=== PATIENT | male | born 1960 | race African-American/Black ===

== ENCOUNTER 2020-09-18 09:43 | Inpatient (IN) ==
[2020-09-18] MEDS ORDERED: PROMETHAZINE 25 MG/1 ML VIAL IM PRN (12:22)
[2020-09-18] MEDS ORDERED: HYDROmorphone 2 MG/1 ML VIAL IV PRN (12:22)
[2020-09-18] MEDS ORDERED: ACETAMINOPHEN 325 MG TABLET PO PRN (12:22)
[2020-09-18] MEDS ORDERED: ONDANSETRON 4 MG/2 ML VIAL IV PRN (12:22)
[2020-09-18 12:46] LABS: Basophils % 0.2 % (0.0-0.8); Eosinophils # 0.1 10*3/uL (0.0-0.87); Eosinophils % 0.6 % (0.00-10.9); Hematocrit 39.9 VOL% (42.0-52.0); Hemoglobin 13.3 GM/DL (14.0-18.0); Immature Granulocytes % 0.6 %; Immature Granulocytes Absolute 0.07 #; Lymphocytes # 0.9 10*3/uL (1.4-4.0); Lymphocytes % 7.8 % (21.2-54.2); Mean Corpuscular HGB Conc 33.3 GM/DL (32-36); Mean Corpuscular Volume 89.9 FL (87-102); Mean Platelet Volume 9.8 FL (9.6-12.0); Monocytes % 11.8 % (1.7-12.7); Platelet Count 295 T/CUMM (130-400); Red Blood Count 4.44 MC/CUMM (3.8-5.5); Red Cell Distribution Width 13.2 % (9.3-17.3); White Blood Count 11.2 T/CUMM (4-12)
[2020-09-18 13:04] LABS: Calcium 9.5 MG/DL (8.5-10.1); Osmolality,Calculated 273.2 MOS/KG (273-304); Potassium 3.8 MMOL/L (3.5-5.1)
[2020-09-18 13:38] LABS: Lymphocytes 6 % (20-55); Platelet Estimate Normal; Polychromasia Slight; Segmented Neutrophils 83 % (50-85); Total Cells Counted 100
[2020-09-18] MEDS: LACTATED RINGERS 1,000 ML IV SCH ×2 (14:28→21:40)
[2020-09-18] MEDS: KETOROLAC 15 MG/1 ML VIAL IV SCH ×2 (14:29→21:40)
[2020-09-18] MEDS ORDERED: SODIUM CHLORIDE 0.9% 1,000 ML IV ONE (14:42)
[2020-09-19] MEDS: KETOROLAC 15 MG/1 ML VIAL IV SCH ×4 (03:14→21:14)
[2020-09-19] MEDS: PANTOPRAZOLE 40 MG TABLET PO SCH (05:35)
[2020-09-19] MEDS: LACTATED RINGERS 1,000 ML IV SCH ×3 (06:04→21:18)
[2020-09-19 06:14] LABS: Basophils % 0.3 % (0.0-0.8); Eosinophils # 0.3 10*3/uL (0.0-0.87); Eosinophils % 2.6 % (0.00-10.9); Hematocrit 35.4 VOL% (42.0-52.0); Hemoglobin 11.8 GM/DL (14.0-18.0); Immature Granulocytes % 0.6 %; Immature Granulocytes Absolute 0.07 #; Lymphocytes # 1.2 10*3/uL (1.4-4.0); Mean Corpuscular HGB Conc 33.3 GM/DL (32-36); Mean Corpuscular Volume 90.3 FL (87-102); Mean Platelet Volume 10.1 FL (9.6-12.0); Monocytes % 15.4 % (1.7-12.7); Neutrophils % 71.1 % (38.7-73.9); Platelet Count 308 T/CUMM (130-400); Red Blood Count 3.92 MC/CUMM (3.8-5.5); Red Cell Distribution Width 13.4 % (9.3-17.3); White Blood Count 12.1 T/CUMM (4-12)
[2020-09-19 06:23] LABS: Calcium 9.1 MG/DL (8.5-10.1); Osmolality,Calculated 269.2 MOS/KG (273-304); Potassium 3.8 MMOL/L (3.5-5.1)
[2020-09-19] MEDS: ENOXAPARIN 40 MG/0.4 ML SYRINGE SUBCUT SCH (08:28)
[2020-09-19 08:49] LABS: Anisocytosis 1+; Band Neutrophils 7 % (0-10); Lymphocytes 16 % (20-55); Macrocytosis Slight; Platelet Estimate Normal; Segmented Neutrophils 63 % (50-85); Total Cells Counted 100
[2020-09-19 15:57] LABS: Bilirubin,Urine Negative (Negative); Blood, Urine Negative (Negative); Glucose,Urine (UA) Negative (Negative); Ketones,Urine Negative (Negative); Mucus,Urine Occasional /LPF (Occasional); Nitrite,Urine Negative (Negative); Protein,Urine Negative; RBC,Urine <1 /HPF (0-4); Squamous Epithelial Cell,Urine Occasional /HPF (0-10); Urine Appearance CLEAR (Clear); Urine Color Yellow (Yellow); Urine Specific Gravity 1.018 (1.001-1.035)
[2020-09-20] MEDS: KETOROLAC 15 MG/1 ML VIAL IV SCH ×4 (04:01→20:56)
[2020-09-20] MEDS: PANTOPRAZOLE 40 MG TABLET PO SCH (05:47)
[2020-09-20] MEDS: LACTATED RINGERS 1,000 ML IV SCH ×2 (05:47→17:58)
[2020-09-20 06:27] LABS: Basophils % 0.3 % (0.0-0.8); Eosinophils # 0.2 10*3/uL (0.0-0.87); Eosinophils % 1.7 % (0.00-10.9); Hematocrit 35.9 VOL% (42.0-52.0); Hemoglobin 12.1 GM/DL (14.0-18.0); Immature Granulocytes % 0.6 %; Immature Granulocytes Absolute 0.07 #; Lymphocytes # 1.3 10*3/uL (1.4-4.0); Lymphocytes % 10.1 % (21.2-54.2); Mean Corpuscular HGB Conc 33.7 GM/DL (32-36); Mean Corpuscular Volume 88.9 FL (87-102); Mean Platelet Volume 9.5 FL (9.6-12.0); Monocytes % 17.6 % (1.7-12.7); Neutrophils % 69.7 % (38.7-73.9); Platelet Count 318 T/CUMM (130-400); Red Blood Count 4.04 MC/CUMM (3.8-5.5); Red Cell Distribution Width 13.6 % (9.3-17.3); White Blood Count 12.7 T/CUMM (4-12)
[2020-09-20 06:48] LABS: Eosinophils 3 % (0-10); Hypochromasia Slight; Lymphocytes 3 % (20-55); Microcytosis Slight; Ovalocytes Slight; Platelet Estimate Adequate; Segmented Neutrophils 78 % (50-85); Total Cells Counted 100
[2020-09-20] MEDS: ENOXAPARIN 40 MG/0.4 ML SYRINGE SUBCUT SCH (09:15)
[2020-09-21] MEDS: LACTATED RINGERS 1,000 ML IV SCH ×3 (01:58→20:34)
[2020-09-21] MEDS: KETOROLAC 15 MG/1 ML VIAL IV SCH ×4 (03:51→20:37)
[2020-09-21] MEDS: PANTOPRAZOLE 40 MG TABLET PO SCH (05:48)
[2020-09-21] MEDS: ENOXAPARIN 40 MG/0.4 ML SYRINGE SUBCUT SCH (09:32)
[2020-09-22] MEDS: KETOROLAC 15 MG/1 ML VIAL IV SCH ×2 (04:17→09:01)
[2020-09-22] MEDS: LACTATED RINGERS 1,000 ML IV SCH ×2 (04:20→05:00)
[2020-09-22] MEDS: PANTOPRAZOLE 40 MG TABLET PO SCH (07:09)
[2020-09-22 08:26] VITALS: BP 165/90
[2020-09-22] MEDS: ENOXAPARIN 40 MG/0.4 ML SYRINGE SUBCUT SCH (09:00)
== END 2020-09-22 11:15 | disposition home health service (06) | DRG 390 ==
LOC: N.5E 11:10
PROVIDERS: ADMIT Surgery; ATTEND Surgery